=== PATIENT | female | born 1970 | race African-American/Black ===

== ENCOUNTER 2017-03-09 22:45 | Inpatient (IN) | payer BC ==
[~2017-03-09] VITALS: Ht 165.1 cm; Wt 102.1 kg
[2017-03-09] MEDS ORDERED: SODIUM CHLORIDE 0.9% 1,000 ML IV ONE (23:44)
[2017-03-09] MEDS ORDERED: ONDANSETRON HCL 4MG/2ML VIAL IV STA (23:44)
[2017-03-09] MEDS ORDERED: MORPHINE SULFATE 4 MG/ML CPJ (NOT FOR IM USE) IV STA (23:44)
[2017-03-10] VITALS (10 sets, daily range): BP systolic 110–134; BP diastolic 59–84
[2017-03-10 00:28] LABS: BASOPHILS % 0.9 % (0.0-2.0); HEMATOCRIT. 23.3 % (36.0-48.0); LYMPHOCYTES % 7.1 % (20.0-50.0); MEAN CORPUSCULAR HEMOGLOBIN 18.9 pg (28.0-32.0); MEAN CORPUSCULAR VOLUME 64.4 fL (81.0-99.0); MEAN PLATELET VOLUME 8.3 fl (7.4-10.4); MONOCYTES % 2.7 % (2.0-8.0); NEUTROPHILS % 89.3 % (40.0-76.0); PLATELET 219 x1000/uL (130-400); RED BLOOD CELL COUNT 3.62 mill/uL (4.2-5.4); RED CELL DISTRIBUTION WIDTH 22.5 % (11.6-14.6)
[2017-03-10 00:30] LABS: HEMOGLOBIN. 6.8 g/dL (12.0-16.0)
[2017-03-10 00:34] LABS: CHLORIDE 108 mEq/L (98-107)
[2017-03-10 00:35] LABS: INR 1.1; PROTHROMBIN TIME 11.2 sec (9.4-11.6)
[2017-03-10 00:40] LABS: HCG SCREEN NEGATIVE
[2017-03-10] MEDS ORDERED: MORPHINE SULFATE 2 MG/ML CPJ (NOT FOR IM USE) IV SCH (00:54)
[2017-03-10] MEDS: MORPHINE SULFATE 10 MG/ML CPJ IV SCH ×3 (00:56→05:19)
[2017-03-10 01:42] LABS: PLATELET ESTIMATE NORMAL
[2017-03-10 02:47] LABS: CLARITY URINE CLEAR (CLEAR); COLOR URINE YELLOW (YELLOW); KETONES URINE NEGATIVE (NEGATIVE); LEUKOCYTE ESTERASE URINE 1+ (NEGATIVE); NITRITE URINE NEGATIVE (NEGATIVE); OCCULT BLOOD URINE 2+ (NEGATIVE); PROTEIN URINE TRACE (NEGATIVE); SPECIFIC GRAVITY URINE 1.038 (1.005-1.030); UROBILINOGEN URINE 0.2 E.U./dL (0.2-1.0)
[2017-03-10] MEDS ORDERED: IOHEXOL-300 100 ML BOTTLE ONE (02:52)
[2017-03-10] MEDS ORDERED: CEFTRIAXONE 1 G PREMIX 50 ML IV ONE (03:30)
[2017-03-10] MEDS ORDERED: CLONIDINE 0.1MG TABLET PO PRN (07:00)
[2017-03-10] MEDS ORDERED: HYDROCODONE/ACETAMINOPHEN 5/325MG TABLET PO PRN (07:00)
[2017-03-10] MEDS ORDERED: MAGNESIUM/ALUMINUM HYDROXIDE/SIMETHICONE 30ML UDC PO PRN (07:00)
[2017-03-10] MEDS ORDERED: NA PHOS,M-B/NA PHOS,DI-BA ENEMA 118ML PR PRN (07:00)
[2017-03-10] MEDS ORDERED: IPRATROPIUM/ALBUTEROL 0.5-3(2.5)MG/3ML NEB INH PRN (07:00)
[2017-03-10] MEDS ORDERED: ACETAMINOPHEN 325MG TABLET PO PRN (07:00)
[2017-03-10] MEDS ORDERED: ONDANSETRON HCL 4MG/2ML VIAL IV PRN (07:00)
[2017-03-10] MEDS ORDERED: DOCUSATE SODIUM 100MG CAPSULE PO PRN (07:00)
[2017-03-10] MEDS ORDERED: GUAIFENESIN 200MG/10ML SUGAR FREE UDC PO PRN (07:00)
[2017-03-10] MEDS ORDERED: LORAZEPAM 2MG/ML CPJ IV PRN (07:00)
[2017-03-10] MEDS ORDERED: LEVOFLOXACIN 500MG PREMIX 100 ML IV SCH ×2 (10:30→21:00)
[2017-03-10] MEDS: MORPHINE SULFATE 2 MG/ML CPJ (NOT FOR IM USE) IV PRN ×2 (10:31→19:00)
[2017-03-10] MEDS: DIPHENHYDRAMINE 50MG/ML VIAL IV PRN ×2 (12:40→21:40)
[2017-03-10] MEDS: SODIUM CHLORIDE 0.45% 1,000 ML IV SCH (22:04)
[2017-03-11] VITALS: BP 121/77
[2017-03-11] MEDS: MORPHINE SULFATE 2 MG/ML CPJ (NOT FOR IM USE) IV PRN ×2 (01:33→10:09)
[2017-03-11 04:00] VITALS: BP 117/66
[2017-03-11 05:34] LABS: CHLORIDE 106 mEq/L (98-107); HDL CHOLESTEROL 40 mg/dL (40-59)
[2017-03-11 05:35] LABS: LDL CHOLESTEROL 74 mg/dL (5-100)
[2017-03-11 05:40] LABS: BASOPHILS % 1.1 % (0.0-2.0); HEMATOCRIT. 27.1 % (36.0-48.0); HEMOGLOBIN. 8.1 g/dL (12.0-16.0); LYMPHOCYTES % 32.6 % (20.0-50.0); MEAN CORPUSCULAR HEMOGLOBIN 20.7 pg (28.0-32.0); MEAN CORPUSCULAR VOLUME 69.7 fL (81.0-99.0); MEAN PLATELET VOLUME 9.1 fl (7.4-10.4); MONOCYTES % 9.4 % (2.0-8.0); NEUTROPHILS % 53.9 % (40.0-76.0); PLATELET 200 x1000/uL (130-400); RED BLOOD CELL COUNT 3.89 mill/uL (4.2-5.4); RED CELL DISTRIBUTION WIDTH 25.4 % (11.6-14.6)
[2017-03-11] MEDS: SODIUM CHLORIDE 0.45% 1,000 ML IV SCH (07:39)
[2017-03-11 08:00] VITALS: BP 128/71
[2017-03-11 12:00] VITALS: BP 124/67
[2017-03-11 16:49] VITALS: BP 124/67
== END 2017-03-11 17:46 | disposition home or self-care (01) | DRG 690 ==
LOC: ER 23:33 → EDBEDREQ 03-10 03:09 → 6EST 03-10 03:27 → EDBEDREQTM 03-10 03:30 → EDBEDREQ 03-10 03:30 → ENRESERV 03-10 07:10
PROVIDERS: ADMIT Internal Medicine; ATTEND Internal Medicine
PROC: 30233N1 Transfusion of Nonautologous Red Blood Cells into Peripheral Vein, Percutaneous Approach (ICD-10-PCS; principal; 2017-03-10)
DX: N12 Tubulo-interstitial nephritis, not specified as acute or chronic (principal); N17.9 Acute kidney failure, unspecified; D25.9 Leiomyoma of uterus, unspecified; D63.8 Anemia in other chronic diseases classified elsewhere; I10 Essential (primary) hypertension; E86.0 Dehydration
CPT/HCPCS: 36415; 74177; 80053; 80061; 81001; 83605; 83690; 84703; 85025; 85610; 86850; 86900; 86920; 87077; 87086; 93005; 96365; 96367; 96375; 99285; J0696; J1200; J1956; J2270; J2405; J7030; J7040; P9016; Q9967